=== PATIENT | male | born 1940 | race Caucasian/White ===

== ENCOUNTER 2020-04-26 20:14 | Emergency (ER) | payer MEDICARE, OTHER ==
[~2020-04-26] VITALS: Ht 170.1 cm; Wt 71.6 kg
--- NOTE | 2020-04-26 20:52 | ED Fall/Injury ---
General Chief Complaint: Upper Extremity Stated Complaint: FELL,SHOULDER PAIN Nursing Triage Note: LEANED ON CAR TO TRY TO GET BALANCE THEN SLIDE OFF CAR AND FELL INTO CEMENT POLE HITTING RIGHT SHOULDER. IF MOVED THE PT STATED THERE IS A SHARP PAIN. Source: patient Exam Limitations: no limitations History of Present Illness Date Seen by Provider: Apr 26, 2020 Time Seen by Provider: 20:24 Initial Comments Patient presents ER by private conveyance chief complaint that he was at [facility] and decided he was getting a little dizzy like he was going to have a fall but n ot pass out so he went back to the car by himself. On the way he fell striking his right shoulder against one of the concrete parking lionel and scraping up his right hand and tearing part of his thumbnail on the right hand. He's had a tetanus vaccination within last 5 years. He denies striking his head or having any pain in his head or neck. He is on Coumadin and has a history of CABG. He is insulin-dependent diabetic. He denies shortness of breath or chest pain. No nausea vomiting diarrhea constipation fevers chills cough shortness of breath lately. Patient says nothing specifically precipitated the fall but towards the evening when he gets tired as when he starts getting a little wobbly on his feet and he suspects is what caused him to fall tonight. His blood sugars have been running normal. Allergies and Home Medications Allergies Coded Allergies: No Known Drug Allergies (Unverified , 04/26/20) Patient Home Medication List Home Medication List Reviewed: Yes Review of Systems Review of Systems Constitutional: No chills, No fever, No malaise Eyes: Denies Blindness, Denies Blurred Vision Ears, Nose, Mouth, Throat: denies ear pain, denies ear discharge Respiratory: No cough, No short of breath Cardiovascular: No edema, No Hx of Intervention, No palpitations Gastrointestinal: No abdominal pain, No constipation, No diarrhea, No nausea Genitourinary: No discharge, No dysuria Musculoskeletal: see HPI; No back pain; joint pain (right shoulder) Skin: see HPI; No pruritus, No rash All Other Systems Reviewed Negative Unless Noted: Yes Past Bqplnhh-Toskht-Jrcxxe Hx Patient Social History Alcohol Use: Denies Use Recreational Drug Use: No Smoking Status: Never a Smoker Recent Foreign Travel: No Contact w/Someone Who Travel: No Recent Infectious Disease Expo: No Physical Abuse: No Sexual Abuse: No Mistreated: No Fear: No Physical Exam Vital Signs Vital Signs - First Documented 04/26/20 20:34 Temp 36.8 Pulse 63 Resp 18 B/P (MAP) 123/99 (107) Pulse Ox 94 O2 Delivery Nasal Cannula O2 Flow Rate 2.00 Capillary Refill : Less Than 3 Seconds Height, Weight, BMI Height: '" Weight: lbs. oz. kg; 24.00 BMI Method: General Appearance: WD/WN, mild distress HEENT: PERRL/EOMI, normal ENT inspection, TMs normal, pharynx normal, other (atraumatic head without bottle sign, raccoon eyes or hemotympanum) Neck: non-tender, full range of motion, supple, normal inspection Cardiovascular: normal peripheral pulses, regular rate, rhythm Respiratory: no respiratory distress, no accessory muscle use Peripheral Pulses: 2+ Dorsalis Pedis (R) (right popliteal pulse 2 out of 4), 2+ Left Dors-Pedis (L), 2+ Radial Pulses (R), 2+ Radial Pulses (L) Gastrointestinal: normal bowel sounds, non tender, soft Back: normal inspection, no vertebral tenderness Extremities: other (and a range of motion he is only able to abduct his right shoulder about 5-10. Passive range of motion he goes about 60 before pain is too great. No deformity but he has abrasions over his right shoulder. 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 Right thumbnail is broken about 50% missing.) [place]alt Coma Score Best Eye Response: (4) Open Spontaneously Best Verbal Response: (5) Oriented Best Motor Response: (6) Obeys Commands Basalt Total: 15 Progress/Results/Core Measures Results/Orders My Orders Orders - KRISTI SHAH Ekg Tracing (04/26/20 20:46) Ct Head/Cervical Spine Wo (04/26/20 20:52) Shoulder 3 View Right (04/26/20 20:52) Vital Signs/I&O 04/26/20 20:34 Temp 36.8 Pulse 63 Resp 18 B/P (MAP) 123/99 (107) Pulse Ox 94 O2 Delivery Nasal Cannula O2 Flow Rate 2.00 Blood Pressure Mean: 107 Progress Progress Note : Time: 20:57 Progress Note Patient has declined any further workup including labs, EKG, urine or orthostatic vital signs. He just is concerned about his shoulder. We did discuss the risk of a bridging vein bleed and subdural hematoma given the fact that he is on warfarin and he is going to pursue CT of the head and C-spine. He does not want anything for pain at this time as long as his shoulders at rest. Plan to clean the wounds with soap and water and dressed them with triple antibiotic ointment and gauze. Diagnostic Imaging Diagonstic Imaging: Xray Plain Films/CT/US/NM/MRI: other (right shoulder) Comments acromial fracture, closed, minimally displaced. [facility] [place] NAME: DERRICK SHUKLA [facility] REC#: [id number] PT STATUS: REG ER : 1940 PHYSICIAN: KRISTI SHAH MD ADMIT DATE: 04/26/20/ER FS Signed Date of Exam:04/26/20 SHOULDER 3 VIEW RIGHT INDICATION: Pain. COMPARISON: None available. TECHNIQUE: Three radiographs of the right shoulder dated April 26, 2020. FINDINGS: Acute fracturing of the acromion is present. The main fracture fragment is slightly inferiorly displaced. The acromioclavicular joint is intact. No additional acute fracture or dislocation. Pacer leads are partially visualized. Post surgical changes of a CABG. Moderate degenerative changes of the acromioclavicular joint. IMPRESSION: Acute mildly displaced fracturing involving the acromion with the acromioclavicular joint remaining intact. Dictated by: Dictated on workstation # [id number] Dict: 04/26/202130 Trans: 04/26/202151 E [id number] Interpreted by: KIRIT MCDERMOTT MD Electronically signed by: KIRIT MCDERMOTT MD 04/26/202151 Reviewed: Reviewed by Me Diagonstic Imaging: CT (without IV contrast) Plain Films/CT/US/NM/MRI: c-spine, head Comments No intracranial hemorrhage, mass effect, tumor or midline shift. No calvarial fracture. C-spine with normal alignment and no acute fracture. NAME: DERRICK SHUKLA [facility] REC#: [id number] PT STATUS: REG ER : 1940 PHYSICIAN: KRISTI SHAH MD ADMIT DATE: 04/26/20/ER FS Signed Date of Exam:04/26/20 CT HEAD/CERVICAL SPINE WO PROCEDURE: CT head and CT cervical spine without contrast. TECHNIQUE: Multiple contiguous axial images were obtained through the brain and cervical spine without the use of intravenous contrast. Sagittal and coronal reformations through the cervical spine were then performed. Auto Exposure Controls were utilized during the CT exam to meet ALARA standards for radiation dose reduction. INDICATION: Fall. FINDINGS: Mild atrophy. No intracranial hemorrhage. No intracranial mass, mass effect, midline shift, herniation, hydrocephalus or extra-axial fluid collection. 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 No definite CT evidence of an acute ischemic infarction. The orbits are unremarkable. The paranasal sinuses are clear. The calvarium and extracalvarial soft tissues are unremarkable. Alignment of the cervical spine is well maintained. Alignment of the left occipital joint is well maintained. Besides endplate degenerative changes, vertebral body heights are well maintained. No acute fracture or dislocation. No destructive osseous process. Scattered facet joint degenerative changes are present. Mild disc space height loss at C3/C4. Moderate disc space height loss at C6/C7. Mild right neural foraminal stenosis at C3/C4. Moderate bilateral neural foraminal stenosis at C5/C6 and C6/C7. No severe osseous central spinal canal stenosis is present with multilevel low-grade narrowing present, particularly at C5/C6 and C6/C7. Paraspinal soft tissues are unremarkable besides scattered vascular calcifications. IMPRESSION: 1. 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 2. No acute osseous abnormality within the cervical spine with mild to moderate multilevel degenerative changes as above. Dictated by: Dictated on workstation # [id number] Dict: 04/26/202132 Trans: 04/26/202151 [facility] [id number] Interpreted by: KIRIT MCDERMOTT MD Electronically signed by: KIRIT MCDERMOTT MD 04/26/202151 Reviewed: Reviewed Night Hawk Study, Reviewed by Me Departure Impression Primary Impression: Fall Qualified Codes: W19.XXXA - Unspecified fall, initial encounter Additional Impressions: Abrasions of multiple sites Fracture scapula-closed Qualified Codes: S42.121A - Displaced fracture of acromial process, right shoulder, initial encounter for closed fracture Disposition: HOME, SELF-CARE Condition: Stable Departure-Patient Inst. Decision time for Depature: 22:00 Referrals: KESHAWN SHARP MD Patient Instructions: How to Use a Shoulder Sling, Shoulder Blade Fracture (DC) Add. Discharge Instructions: An ice pack alternated with heating pads for the first couple days can be helpful for pain. Keep your arm in the sling until you see the orthopedic surgeon in the next week. Call tomorrow morning for an appointment with Dr. Sharp, orthopedic surgeon. Tylenol 650 mg every 8 hours as necessary for pain. Hydrocodone one tablet every 6 hours as necessary for breakthrough pain. Hydrocodone will cause constipation and drowsiness. MiraLAX once or twice a day will help keep your bowel movements regular while on the hydrocodone. Keep your wounds clean daily with regular soap and water only. Reapply bandages or dressings as needed until they heal. Keflex one capsule 3 times a day for the next 5 days to prevent infection of yo ur wounds on your hands. All discharge instructions reviewed with patient and/or family. Voiced understanding. Scripts Hydrocodone/Acetaminophen (Hydrocodone-Acetamin 5-325 mg) 1 Each Tablet 1 EACH PO Q6H PRN for PAIN-BREAKTHROUGH, #12 TAB 0 Refills Prov: KRISTI SHAH 04/26/20 Cephalexin (Keflex) 500 Mg Capsule 500 MG PO TID for 5 Days, #15 CAP 0 Refills Prov: KRISTI SHAH 04/26/20 Copy Copies To 1: KESHAWN SHARP MD, TITUS J Apr 26, 2020 20:52
--- NOTE | 2020-04-26 20:56 | NUR ---
TRIPLE ANTIBIOTIC OINTMENT AND DRESSING PLACED ON RIGHT HAND.
--- NOTE | 2020-04-26 20:58 | NUR ---
PT. REFUSED ALL LABS, EKG, AND DOCTOR WILL CANCEL ORDERS. PT. WILL DO X-RAYS.
--- NOTE | 2020-04-26 21:37 | Diagnostic Imaging Report ---
INDICATION: Pain. COMPARISON: None available. TECHNIQUE: Three radiographs of the right shoulder dated April 26, 2020. FINDINGS: Acute fracturing of the acromion is present. The main fracture fragment is slightly inferiorly displaced. The acromioclavicular joint is intact. No additional acute fracture or dislocation. Pacer leads are partially visualized. Post surgical changes of a CABG. Moderate degenerative changes of the acromioclavicular joint. IMPRESSION: Acute mildly displaced fracturing involving the acromion with the acromioclavicular joint remaining intact. Dictated by: Dictated on workstation # [id number]
--- NOTE | 2020-04-26 21:42 | Diagnostic Imaging Report ---
PROCEDURE: CT head and CT cervical spine without contrast. TECHNIQUE: Multiple contiguous axial images were obtained through the brain and cervical spine without the use of intravenous contrast. Sagittal and coronal reformations through the cervical spine were then performed. Auto Exposure Controls were utilized during the CT exam to meet ALARA standards for radiation dose reduction. INDICATION: Fall. FINDINGS: Mild atrophy. No intracranial hemorrhage. No intracranial mass, mass effect, midline shift, herniation, hydrocephalus or extra-axial fluid collection. 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 No definite CT evidence of an acute ischemic infarction. The orbits are unremarkable. The paranasal sinuses are clear. The calvarium and extracalvarial soft tissues are unremarkable. Alignment of the cervical spine is well maintained. Alignment of the left occipital joint is well maintained. Besides endplate degenerative changes, vertebral body heights are well maintained. No acute fracture or dislocation. No destructive osseous process. Scattered facet joint degenerative changes are present. Mild disc space height loss at C3/C4. Moderate disc space height loss at C6/C7. Mild right neural foraminal stenosis at C3/C4. Moderate bilateral neural foraminal stenosis at C5/C6 and C6/C7. No severe osseous central spinal canal stenosis is present with multilevel low-grade narrowing present, particularly at C5/C6 and C6/C7. Paraspinal soft tissues are unremarkable besides scattered vascular calcifications. IMPRESSION: 1. 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 2. No acute osseous abnormality within the cervical spine with mild to moderate multilevel degenerative changes as above. Dictated by: Dictated on workstation # [id number]
--- OUTSIDE RECORDS SUMMARY | 2020-04-26 21:56 | XMS REPORT ---
Author Author Yesica ROBERTS Organization [facility] Address [address] [place] [address] Care Team Providers Care Spike Maker Name Role Phone DYLON ROBERTS Unavailable PROBLEMS Type Condition ICD9-CM Code XLN35-AA Code Onset Dates Condition S tatus SNOMED Code Problem Pure hypercholesterolemia E78.00 Acti ve 480119532 Problem Hypokalemia E87.6 Jun, Active 35033 004 Problem Thrombocytopenia, primary D69.49 Apr, A ctive 529420603 Problem Idiopathic acute pancreatitis K85.00 Jun, 16 Active 658802792 Problem Hx of CABG Z95.1 Jul, Active 992720 000 Problem Paroxysmal atrial flutter I48.92 Jul, A ctive 263307290 Problem Reflux esophagitis K21.0 Active 2 10628420 Problem Essential hypertension I10 Active 86019419 Problem 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 Jul, Active 033684490 Problem Barretts esophagus K22.70 Active 3 31768873 Problem CKD (chronic kidney disease) stage 3, GFR 30-59 ml/min N18.3 May, Active 587730015 Problem Type 2 diabetes mellitus wit h other specified complication, without long-term current use of insulin E11.69 Active 48989242 Problem CAD (coronary artery disease) I25.10 Jul, 14 Active 20864213 Problem Ischemic cardiomyopathy I25.5 Jul, Act aracely 468233684 Problem Chronic kidney disease, stage 3 (moderate) N18.3 Active 416181207 Problem COPD (chronic obstructive pulmonary disease) J4 4.9 Apr, Active 36403452 Problem Old myocardial infarction I25.2 Acti ve 6225689 Problem Coronary artery disease invo lving coronary bypass graft of [place] heart without angina pectoris I25.810 Mar, Active 3718 40632 Problem Basal cell carcinoma C44.91 Mar, Active 0992288 Problem Essential hypertension I10 Active 92229164 Problem Pure hypercholesterolemia E78.00 Acti ve 419421557 ALLERGIES Substance Reaction Event Type Date Status Vicodin ES Unknown Drug Allergy Dec, Active ENCOUNTERS Encounter Location Date Diagnosis [address] [id number] [address] May, [address] [id number] [address] Jan, Type 2 diabetes mellitus wit h diabetic chronic kidney disease E11.22 ; Chronic kidney disease, stage 3 (moderate) N18.3 ; COPD (chronic obstructive pulmonary disease) J44.9 and Thrombocytopenia, primary D69.[address] [id number] [place] [address] Dec, Type 2 diabetes mellitus wit hout complication, without long-term current use of insulin E11.9 ; Pure hypercholesterolemia E78.00 ; Essential hypertension I10 and CKD (chronic kidney disease) stage 3, GFR 30-59 ml/min N18.[address] [id number] [address] Dec, Pure hypercholesterolemia E7 8.00 ; Type 2 diabetes mellitus without complication, without long-term current use of insulin E11.9 and Essential hypertension I10 [address] [id number] [place] [address] Oct, [address] [id number], [place] [address] Sep, Encounter for Medicare annua l wellness exam Z00.00 ; Essential hypertension I10 ; Type 2 diabetes mellitus with other specified complication, without long-term current use of insulin E11.69 and Pure hypercholesterolemia E78.[address] [id number] [place] [address] 02 Sep, 2019 CKD (chronic kidney disease) stage 3, GFR 30-59 ml/min N18.3 ; Thrombocytopenia, primary D69.49 ; COPD (chronic obstructive pulmonary disease) J44.9 ; Essential hypertension I10 and Type 2 diabetes mellitus with other specified complication, without long-term current use of insulin E11.69 [facility] JIGNESH [address] [id number] [place] [address] Aug, Type 2 diabetes mellitus wit h other specified complication, without long-term current use of insulin E11.69 [facility] JIGNESH [address] [id number] [place] [address] Jul, [address] [id number] [place] [address] Apr, Type 2 diabetes mellitus wit h other specified complication, without long-term current use of insulin E11.69 ; Pure hypercholesterolemia E78.00 ; Ischemic cardiomyopathy I25.5 and Essential hypertension I10 [facility] JIGNESH [address] [id number] [address] Apr, Type 2 diabetes mellitus wit hout complication, without long-term current use of insulin E11.9 [facility] JIGNESH [address] [id number] [place] [address] Dec, Essential hypertension I10 ; Pure hypercholesterolemia E78.00 and Type 2 diabetes mellitus without complication, without long-term current use of insulin E11.9 [facility] JIGNESH [address] [id number] [place] [address] Dec, Encounter for immunization Z 23 [facility] JIGNESH [address] [id number] [address] Dec, [address] [id number] [address] Dec, [facility] [address] [facility] [id number] [address] [place] [address] Oct, [facility] [address] [facility] [id number] [address] [place] [address] Sep, [facility] [address] [facility] [id number] [address] [place] [address] Sep, [facility] [address] [facility] [id number] [address] [place] [address] Sep, [facility] [address] [facility] [id number] [address] [place] [address] Aug, [facility] [address] [facility] [id number] [address] [place] [address] Aug, [facility] [address] [facility] [id number] [address] [place] [address] May, [facility] [address] [facility] [id number] [address] [place] [address] Sep, IMMUNIZATIONS No Known Immunizations SOCIAL HISTORY Never Assessed REASON FOR VISIT 3 Month F/U PLAN OF CARE Activity Details Follow Up 4 Months Reason:fu with labs prior VITAL SIGNS Height 5ft 7in in 2019-01-13 Weight 168 lbs 2019-01-13 BMI 26.31 kg/m2 2019-01-13 Blood pressure systolic 92 mmHg 2019-01-13 Blood pressure diastolic 58 mmHg 2019-01-13 MEDICATIONS Medication Instructions Dosage Frequency Start Date End Date Duration S tatus Coumadin 5 MG Orally Once a day 1 tablet 24h 30 day( s) Active Benadryl Allergy 25 MG Orally every 8 hrs 1 tablet as needed 8h Active Nitrostat 0.4 MG as directed Act aracely Protonix 40 MG Orally Once a day 1 tablet 24h 30 day (s) Active Flonase 50 MCG/ACT Nasally Once a day 1 spray in each nostril 24h 30 day(s) Active Albuterol Sulfate HFA 108 (90 Base) MCG/ACT Inhalation every 6 hrs 2 puffs as needed 6h Active Trazodone HCl 100 MG Orally Once a day 1 tablet at bedtime 24h 30 day(s) Active Bumex 2 MG as directed Active Aldactone 25 MG 1 tablet 30 day(s) Activ e Fish Oil 1000 MG Orally Once a day 1 capsule 24h 30 day(s) Active Lisinopril 5 MG Orally Once a day 1 tablet 24h 30 da y(s) Active Xanax 0.25 MG Orally Twice a day 1 tablet 12h Active Lantus SoloStar 100 UNIT/ML as directed Active Glucotrol 10 MG Orally Once a day 1 tablet 24h 30 da y(s) Active Betapace 80 MG Orally every 12 hrs 1 tablet 12h 30 d ay(s) Active Breo Ellipta 100-25 MCG/INH Inhalation Once a day 1 puff 24h Active Lipitor 40 MG Orally Once a day 1 tablet 24h 30 day( s) Active Claritin 10 MG Orally Once a day 1 tablet 24h 30 day (s) Active Lanoxin 125 MCG Orally Once a day 1 tablet 24h 30 da y(s) Active RESULTS No Results PROCEDURES Procedure Date Ordered Result Body Site VENIPUNCT, ROUTINE* January 13, 2019 [email or web address], 2019 Hemoglobin Test Send Out 0 dollar January 13, 2019 [facility] VISIT NEW PATIENT January 13, 2019 INSTRUCTIONS MEDICATIONS ADMINISTERED No Known Medications MEDICAL (GENERAL) HISTORY Type Description Date Medical History Type 2 diabetes mellitus Medical History COPD (chronic obstructive pulmonary dise ase) Medical History Hypertension Medical History Hypercholesterolemia Medical History Barretts esophagus Medical History Reflux esophagitis Medical History CAD (coronary artery disease) Medical History Atrial fibrillation Medical History Ischemic cardiomyopathy Medical History CKD (chronic kidney disease) stage 3, GF R 30-59 ml/min Medical History Presence of automatic (implantable) card iac defibrillator Surgical History CABG Surgical History Pacemaker Hospitalization History CABG
--- OUTSIDE RECORDS SUMMARY | 2020-04-26 21:56 | XMS REPORT | Continuity of Care Document ---
Author Organization Unknown Address Unknown Phone Unavailable Allergies There is no data. Medications There is no data. Problems There is no data. Procedures There is no data. Results Test Result Range MICROALBUMIN/CREATININE RATIO, URINE - 0 01/13/19 09:59 CREATININE, RANDOM URINE 216 mg/dL 20-32 0 MICROALBUMIN 4.6 mg/dL See Note: MICROALBUMIN/CREATININE RATIO, RANDOM URINE 21 mcg /mg creat <30 A1C - 01/13/19 09:59 HEMOGLOBIN A1c 9.6 % of total Hgb <5.7 CBC - 05/04/19 08:41 WHITE BLOOD CELL COUNT 9.1 Thousand/uL 3 .8-10.8 RED BLOOD CELL COUNT 4.79 Million/uL 4.2 0-5.80 HEMOGLOBIN 14.0 g/dL 13.2-17.1 HEMATOCRIT 43.4 % 38.5-50.0 MCV 90.6 fL 80.0-100.0 MCH 29.2 pg 27.0-33.0 MCHC 32.3 g/dL 32.0-36.0 RDW 13.8 % 11.0-15.0 PLATELET COUNT TNP Thousand/uL NRG ABSOLUTE NEUTROPHILS 6570 cells/uL 1500- 7800 ABSOLUTE LYMPHOCYTES 1265 cells/uL 850-3 900 ABSOLUTE MONOCYTES 828 cells/uL 200-950 ABSOLUTE EOSINOPHILS 373 cells/uL 15-500 ABSOLUTE BASOPHILS 64 cells/uL 0-200 NEUTROPHILS 72.2 % NRG LYMPHOCYTES 13.9 % NRG MONOCYTES 9.1 % NRG EOSINOPHILS 4.1 % NRG BASOPHILS 0.7 % NRG CBC MORPHOLOGY NORMAL A1C - 05/04/19 08:41 HEMOGLOBIN A1c 8.1 % of total Hgb <5.7 LIPID PANEL - 01/16/20 10:42 CHOLESTEROL, TOTAL 132 mg/dL <200 HDL CHOLESTEROL 30 mg/dL > OR = 40 TRIGLYCERIDES 176 mg/dL <150 LDL-CHOLESTEROL 75 mg/dL (calc) NRG CHOL/HDLC RATIO 4.4 (calc) <5.0 NON HDL CHOLESTEROL 102 mg/dL (calc) <13 0 CMP - 01/16/20 10:42 GLUCOSE 241 mg/dL 65-99 UREA NITROGEN (BUN) 29 mg/dL 7-25 CREATININE 1.56 mg/dL 0.70-1.18 eGFR NON-AFR. NORWEGIAN 42 mL/min/1.73m2 > OR = 60 eGFR 49 mL/min/1.73m2 > OR = 60 BUN/CREATININE RATIO 19 (calc) 6-22 SODIUM 134 mmol/L 135-146 POTASSIUM 5.1 mmol/L 3.5-5.3 CHLORIDE 97 mmol/L 98-110 CARBON DIOXIDE 31 mmol/L 20-32 CALCIUM 8.9 mg/dL 8.6-10.3 PROTEIN, TOTAL 6.9 g/dL 6.1-8.1 ALBUMIN 4.0 g/dL 3.6-5.1 GLOBULIN 2.9 g/dL (calc) 1.9-3.7 ALBUMIN/GLOBULIN RATIO 1.4 (calc) 1.0-2. 5 BILIRUBIN, TOTAL 0.7 mg/dL 0.2-1.2 ALKALINE PHOSPHATASE 73 U/L 35-144 AST 18 U/L 10-35 ALT 15 U/L 9-46 CBC - 01/16/20 10:42 WHITE BLOOD CELL COUNT 8.3 Thousand/uL 3 .8-10.8 RED BLOOD CELL COUNT 4.75 Million/uL 4.2 0-5.80 HEMOGLOBIN 14.3 g/dL 13.2-17.1 HEMATOCRIT 42.5 % 38.5-50.0 MCV 89.5 fL 80.0-100.0 MCH 30.1 pg 27.0-33.0 MCHC 33.6 g/dL 32.0-36.0 RDW 13.5 % 11.0-15.0 PLATELET COUNT 85 Thousand/uL 140-400 MPV 10.2 fL 7.5-12.5 ABSOLUTE NEUTROPHILS 5860 cells/uL 1500- 7800 ABSOLUTE LYMPHOCYTES 1179 cells/uL 850-3 900 ABSOLUTE MONOCYTES 764 cells/uL 200-950 ABSOLUTE EOSINOPHILS 448 cells/uL 15-500 ABSOLUTE BASOPHILS 50 cells/uL 0-200 NEUTROPHILS 70.6 % NRG LYMPHOCYTES 14.2 % NRG MONOCYTES 9.2 % NRG EOSINOPHILS 5.4 % NRG BASOPHILS 0.6 % NRG A1C - 01/16/20 10:42 HEMOGLOBIN A1c 8.5 % of total Hgb <5.7 Encounters ACCT No. Visit Date/Time Discharge Status Pt. Type Provider Facility Loc./Unit Complaint [id number] 05/04/2019 08:30:00 05/04/2019 23:59: [facility] [id number] 01/13/2019 08:45:00 Document Registration [id number] 2019 09:45:00 2019 23:59: [facility] [id number] 01/16/2020 09:45:00 Document Registration [id number] 05/04/2019 08:30:00 Document Registration
--- OUTSIDE RECORDS SUMMARY | 2020-04-26 21:56 | XMS REPORT ---
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 Jul, Active 486542 000 Problem Paroxysmal atrial flutter I48.92 Jul, A ctive 126626004 Problem Reflux esophagitis K21.0 Active 2 66359481 Problem Essential hypertension I10 Active 81699831 Problem CAD (coronary artery disease) I25.10 Jul, 14 Active 11754020 Problem COPD (chronic obstructive pulmonary disease) J4 4.9 Apr, Active 38620067 Problem Hypokalemia E87.6 Jun, Active 45736 004 Problem 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 Jul, Active 527890770 Problem Barretts esophagus K22.70 Active 3 55719037 Problem Pure hypercholesterolemia E78.00 Acti ve 898837808 Problem Old myocardial infarction I25.2 Acti ve 3629053 Problem Pure hypercholesterolemia E78.00 Acti ve 256411557 Problem Type 2 diabetes mellitus wit h other specified complication, without long-term current use of insulin E11.69 Active 05980955 Problem Ischemic cardiomyopathy I25.5 Jul, Act aracely 733918082 Problem Idiopathic acute pancreatitis K85.00 Jun, 16 Active 309513338 Problem CKD (chronic kidney disease) stage 3, GFR 30-59 ml/min N18.3 May, Active 159012305 Problem Coronary artery disease invo lving coronary bypass graft of [place] heart without angina pectoris I25.810 11 Mar, 2015 Active 3718 08143 Problem Basal cell carcinoma C44.91 27 Mar, 2012 Active 6430727 Problem Essential hypertension I10 Active 21057774 ALLERGIES No Information ENCOUNTERS Encounter Location Date Diagnosis [facility] JIGNESH GUILLEN [address] [address] Sep, [address] [address] Apr, Type 2 diabetes mellitus with other spec ified complication, without long-term current use of insulin E11.69 ; Pure hypercholesterolemia E78.00 ; Ischemic cardiomyopathy I25.5 and Essential hypertension I10 [address] [address] Apr, Type 2 diabetes mellitus without complic ation, without long-term current use of insulin E11.[address] [address] Dec, Essential hypertension I10 ; Pure hyperc holesterolemia E78.00 and Type 2 diabetes mellitus without complication, without long-term current use of insulin E11.[address] [address] Dec, Encounter for immunization Z23 [address] [address] Dec, [address] [address] Dec, [facility] [address] [facility] [id number] [address] [place] [address] Oct, [facility] [address] [facility] [id number] [address] [place] [address] Sep, [facility] [address] [facility] [id number] [address] [place] [phone] Sep, [facility] [address] [facility] [id number] [address] [place] [address] Sep, [facility] [address] [facility] [id number] [address] [place] [phone] Aug, [facility] [address] [facility] [id number] [address] [place] [address] Aug, [facility] [address] [facility] [id number] [address] [place] [phone] May, [facility] [address] [facility] [id number] [address] [place] [phone] Sep, IMMUNIZATIONS No Known Immunizations SOCIAL HISTORY Never Assessed REASON FOR VISIT PLAN OF CARE VITAL SIGNS MEDICATIONS Medication Instructions Dosage Frequency Start Date End Date Duration S tatus Shingrix 50 MCG/0.5ML Intramuscular one time as directed Dec, 1 dose Active RESULTS No Results PROCEDURES No Known procedures INSTRUCTIONS MEDICATIONS ADMINISTERED No Known Medications MEDICAL [...]
--- OUTSIDE RECORDS SUMMARY | 2020-04-26 21:56 | XMS REPORT ---
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 Jul, Active 563482 000 Problem Paroxysmal atrial flutter I48.92 Jul, A ctive 360144117 Problem Reflux esophagitis K21.0 Active 2 06036038 Problem Essential hypertension I10 Active 18756723 Problem CAD (coronary artery disease) I25.10 Jul, 14 Active 12409618 Problem COPD (chronic obstructive pulmonary disease) J4 4.9 Apr, Active 80170778 Problem Hypokalemia E87.6 Jun, Active 60615 004 Problem 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 Jul, Active 817800918 Problem Barretts esophagus K22.70 Active 3 35127311 Problem Pure hypercholesterolemia E78.00 Acti ve 545117825 Problem Old myocardial infarction I25.2 Acti ve 6538171 Problem Pure hypercholesterolemia E78.00 Acti ve 972507257 Problem Type 2 diabetes mellitus wit h other specified complication, without long-term current use of insulin E11.69 Active 61867075 Problem Ischemic cardiomyopathy I25.5 Jul, Act aracely 259898914 Problem Idiopathic acute pancreatitis K85.00 Jun, 16 Active 239466087 Problem CKD (chronic kidney disease) stage 3, GFR 30-59 ml/min N18.3 May, Active 900991433 Problem Coronary artery disease invo lving coronary bypass graft of [place] heart without angina pectoris I25.810 11 Mar, 2015 Active 3718 65961 Problem Basal cell carcinoma C44.91 27 Mar, 2012 Active 2807444 Problem Essential hypertension I10 Active 33615016 ALLERGIES No Information ENCOUNTERS Encounter Location Date Diagnosis [facility] JIGNESH GUILLEN [address] [place] [address] 02 Jan, 2020 [address] [place] [address] Oct, [address] [place] [address] Sep, Encounter for Medicare annua l wellness exam Z00.00 ; Essential hypertension I10 ; Type 2 diabetes mellitus with other specified complication, without long-term current use of insulin E11.69 and Pure hypercholesterolemia E78.00 [address] [place] [address] Sep, CKD (chronic kidney disease) stage 3, GFR 30-59 ml/min N18.3 ; Thrombocytopenia, primary D69.49 ; COPD (chronic obstructive pulmonary disease) J44.9 ; Essential hypertension I10 and Type 2 diabetes mellitus with other specified complication, without long-term current use of insulin E11.69 [address] [place] [address] Aug, Type 2 diabetes mellitus wit h other specified complication, without long-term current use of insulin E11.69 [address] [place] [address] Jul, [address] [place] [address] Apr, Type 2 diabetes mellitus wit h other specified complication, without long-term current use of insulin E11.69 ; Pure hypercholesterolemia E78.00 ; Ischemic cardiomyopathy I25.5 and Essential hypertension I10 [address] [place] [address] Apr, Type 2 diabetes mellitus wit hout complication, without long-term current use of insulin E11.9 [address] [place] [address] Dec, Essential hypertension I10 ; Pure hypercholesterolemia E78.00 and Type 2 diabetes mellitus without complication, without long-term current use of insulin E11.9 [address] [place] [address] Dec, Encounter for immunization Z [address] [place] [address] Dec, [address] [place] [address] Dec, [place] [address] [address] Oct, [facility] [address] [address] Sep, [place] [address] [address] Sep, [facility] [address] [address] Sep, [place] [address] [address] Aug, [facility] [address] [address] Aug, [facility] [address] [address] May, [facility] [address] [address] Sep, IMMUNIZATIONS Vaccine Route Administration Date Status PRIVATE SHINGRIX (HERPES ZOSTER-2 DOSE) IM Intramuscular December 182018 Administered SOCIAL HISTORY Never Assessed REASON FOR VISIT Injection PLAN OF CARE VITAL SIGNS MEDICATIONS Unknown Medications RESULTS No Results PROCEDURES Procedure Date Ordered Result Body Site SINGLE IMMUNIZATION ADMIN January 07, 2019 PRIVATE SHINGRIX (HERPES ZOSTER-2 DOSE) January 07, 2019 INSTRUCTIONS MEDICATIONS ADMINISTERED No Known Medications [...]
[2020-04-26] MEDS ORDERED: CEPH-507 PO (22:17)
[2020-04-26] MEDS ORDERED: HYDR-83 PO (22:17)
[2020-04-26 22:21] VITALS: BP 127/72
== END 2020-04-26 22:21 | disposition home or self-care (01) ==
LOC: EDUNIT# 20:14 → ER FS 20:15
DX: S42.121A Displaced fracture of acromial process, right shoulder, initial encounter for closed fracture (principal); S60.511A Abrasion of right hand, initial encounter; S80.211A Abrasion, right knee, initial encounter; S60.811A Abrasion of right wrist, initial encounter; S50.311A Abrasion of right elbow, initial encounter; R40.2142 Coma scale, eyes open, spontaneous, at arrival to emergency department; R40.2252 Coma scale, best verbal response, oriented, at arrival to emergency department; R40.2362 Coma scale, best motor response, obeys commands, at arrival to emergency department; Z79.01 Long term (current) use of anticoagulants; Z95.1 Presence of aortocoronary bypass graft; W19.XXXA Unspecified fall, initial encounter; W22.8XXA Striking against or struck by other objects, initial encounter; Y92.481 Parking lot as the place of occurrence of the external cause
CPT/HCPCS: 70450; 72125; 73030

== ENCOUNTER → 2020-05-14 | Outpatient (CLI) | payer MEDICARE ==
[~2020-05-14] MED LIST: CEPH-507 PO; HYDR-3812 PO
--- NOTE | 2020-05-14 11:00 | Diagnostic Imaging Report ---
INDICATION: Followup right shoulder fracture. TIME OF EXAM: 10:05 AM. COMPARISON: 04/26/2020. FINDINGS: The glenohumeral and acromioclavicular alignment is normal. The osseous density projected within the acromiohumeral space is again noted and may represent a fracture fragment arising from the scapula with some lateral displacement. The proximal humerus is intact. No other abnormalities are seen. IMPRESSION: There continues to be a bony fragment projected just lateral to the acromion within the acromiohumeral space, likely a fracture fragment. This is very similar to the examination from 04/26/2020. A CT through the right shoulder may be useful for further characterization. Dictated by: Dictated on workstation # [id number]
== END ==
LOC: RAD FS 09:55
PROVIDERS: ATTEND Nurse Practitioner
DX: S42.121D Displaced fracture of acromial process, right shoulder, subsequent encounter for fracture with routine healing (principal); X58.XXXD Exposure to other specified factors, subsequent encounter
CPT/HCPCS: 73030

== ENCOUNTER → 2020-06-12 | Outpatient (CLI) | payer MEDICARE ==
--- NOTE | 2020-06-12 10:56 | Diagnostic Imaging Report ---
INDICATION: Followup shoulder fracture. COMPARISON: 05/14/2020. FINDINGS: Three radiographic views of the right shoulder were obtained. Again identified is a large osseous fragment adjacent to the lateral and posterior margins of the acromion, presumed to be on the basis of a mild displaced acromial fracture fragment. The AC joint remains intact. The glenohumeral joint space is preserved as well. No new acute fracture or dislocation of the right shoulder is seen. The included portions of the right hemithorax show background chronic appearing interstitial changes and cardiomegaly. AICD is also noted. IMPRESSION: Stable appearing nonacute fracture of the right acromion. Dictated by: Dictated on workstation # [id number]
== END ==
LOC: RAD FS 09:51
PROVIDERS: ATTEND Nurse Practitioner
DX: S42.121D Displaced fracture of acromial process, right shoulder, subsequent encounter for fracture with routine healing (principal)
CPT/HCPCS: 73030

== ENCOUNTER 2023-01-09 08:49 | Emergency (ER) | payer MEDICARE ==
[~2023-01-09 08:49] MED LIST changes: +ACHD5005 PO; -HYDR-3812 PO
[2023-01-09 08:50] VITALS: BP 150/21
[2023-01-09] MEDS ORDERED: EPINEPHrine 0.1 MG/ML 10 ML (HOSPIRA) SYR IV ONE (08:51)
[2023-01-09] MEDS ORDERED: AMIODARONE 150 MG/3 ML (CORDARONE) VIAL IV ONE (08:51)
[2023-01-09] MEDS ORDERED: SODIUM BICARB 8.4% 50 MEQ/50 ML (ABBOTT) SYR INJ ONE (08:51)
[2023-01-09] MEDS ORDERED: CALCIUM CHLORIDE 1 GM/10 ML (IMS) SYR IV ONE (08:51)
[2023-01-09] MEDS ORDERED: ESMOLOL 100 MG/10 ML (BREVIBLOC) VIAL ONE (08:57)
--- NOTE | 2023-01-09 09:22 | ED CPR ---
HPI-CPR General Stated Complaint: UNRESPONSIVE Source of Information: EMS, Family History of Present Illness Date Seen by Provider: Jan 09, 2023 Time Seen by Provider: 08:49 Initial Comments 82-year-old male with past medical history of CAD with numerous stents, pacemaker and defibrillator implanted, diabetes, hypertension, COPD coming in via EMS due to a cardiac arrest. Patient was not feeling well and was trying to make it to the ER, stopped the fire station, witnessed unresponsiveness. CPR started immediately. Initially PEA arrest, later found to be in V-fib. Was given 300 mg of amiodarone, 1 mg of epinephrine, and his defibrillator shocked him once per EMS. Further elements of the history and physical were unable to be obtained due to the situation. Allergies and Home Medications Allergies Coded Allergies: No Known Drug Allergies (Unverified , 04/26/20) Patient Home Medication List Home Medication List Reviewed: Yes Cephalexin (Keflex) 500 Mg Capsule, 500 MG PO TID Prescribed by: KRISTI SHAH on 04/26/202216 Hydrocodone/Acetaminophen (Hydrocodone-Acetamin 5-325 mg) 1 Each Tablet, 1 EACH PO Q6H PRN for PAIN-BREAKTHROUGH Prescribed by: KRISTI SHAH on 04/26/202216 Review of Systems Review of Systems Constitutional: No fever Past Lgyyypn-Ilzxff-Xkzayp Hx Patient Social History Substance use?: No Seasonal Allergies Seasonal Allergies: Yes Past Medical History Surgeries: Yes Cardiac, Gallbladder, Open Heart Surgery Respiratory: Yes (WEARS 02 AT 2 LITERS) Hypertension Neurological: No Genitourinary: No Gastrointestinal: No Musculoskeletal: No Endocrine: Yes Diabetes, Non-Insulin dep HEENT: No Cancer: No Psychosocial: No Integumentary: No Blood Disorders: No Physical Exam Vital Signs Capillary Refill : Height, Weight, BMI Height: '" Weight: lbs. oz. kg; 24.00 BMI Method: General Appearance: Other (Unresponsive, CPR ongoing) HEENT: Other (Pupils are 5 mm bilaterally and nonreactive) Respiratory: Other (Patient is intubated with bilateral breath sounds) Cardiovascular: Other (Pulseless) Gastrointestinal: Other (Abdomen is soft) Neurologic/Psychiatric: Other (Unresponsive) Progress/Results/Core Measures Results/Orders My Orders Orders - SAHRA HERNANDEZ MD Esmolol Injection (Brevibloc Injection) (01/09/23 08:57) Progress Progress Note : Progress Note 82-year-old male with above history coming in unresponsive in V-fib arrest. CPR was ongoing with JASON device and the patient was intubated prior to arrival. Confirmed bilateral breath sounds, with CPR ongoing his end-tidal CO2 was around 12. Multiple rounds of ACLS were performed, patient was given a total of 3 mg of epinephrine, 40 mg of esmolol as a bolus due to refractory V-fib. The patient was shocked multiple times, we attempted to maneuver the pad placement to anterior and posterior to try to get better capture. Despite this, we were unable to get ROSC. Family was present at the bedside and his resuscitation was terminated after confirming no cardiac activity on ultrasound by myself. Time of was 9:11 AM. Critical Care Note Critical Care Start Time: 08:49 Stop Time: 09:11 Total Time (minutes) 22 Date of : Jan 09, 2023 Time of : 09:11 Progress ACLS was performed for greater than 30 minutes between EMS and ER staff. Patient was in refractory V-fib with multiple shocks attempted, given amiodarone x2, given esmolol bolus, reposition pads and to no avail we could not obtain ROSC. At the time of , he had no cardiac activity on ultrasound, and pupils were fixed and dilated, and no signs of life. Departure Impression Primary Impression: Cardiac arrest Additional Impression: Sustained ventricular fibrillation Disposition: 20 Condition: Departure-Patient Inst. Referrals: DYLON ROBERTS MD (PCP) Primary Care Physician SAHRA HERNANDEZ MD Jan 09, 2023 09:22
== END 2023-01-09 11:00 | disposition expired ==
LOC: EDUNIT# 08:49 → ER FS 08:50
DX: I46.9 Cardiac arrest, cause unspecified (principal); I49.01 Ventricular fibrillation; Z95.810 Presence of automatic (implantable) cardiac defibrillator; Z99.81 Dependence on supplemental oxygen
CPT/HCPCS: 36680; 94002; 99291